=== PATIENT | male | born 1980 | race Hispanic/Latino ===

== ENCOUNTER 2024-04-24 14:24 | Emergency (ER) | payer SELFPAY ==
[2024-04-24] MEDS ORDERED: Lidocaine 1% w/Epinephrine 1:100K 20 ML VIAL ONE (15:34)
[2024-04-24] MEDS ORDERED: Boostrix 0.5 ML (Tdap) VIAL (>/=7 yrs of age) ONE (15:35)
[2024-04-24] MEDS ORDERED: Bacitracin 1 PK ONE (17:13)
== END 2024-04-24 17:20 | disposition home or self-care (01) ==
LOC: ERS 14:24
DX: S61.412A Laceration without foreign body of left hand, initial encounter (principal); Z23 Encounter for immunization; W26.0XXA Contact with knife, initial encounter; Y93.89 Activity, other specified
CPT/HCPCS: 12002; 90471; 90715